=== PATIENT | female | born 1995 | race Caucasian/White ===

== ENCOUNTER → 2019-04-01 | Outpatient (CLI) | payer BC ==
[2019-04-01 14:46] VITALS: BP 111/72; PULSE 97; RESP 16; TEMP 97.9; BMI 25.7
--- NOTE | 2019-04-01 15:42 | P.HPOB ---
History of Present Illness H&P Date: 04/01/19 Chief Complaint: The patient is here for her routine gynecologic exam and OCP renewal. This is a 23-year-old with an LMP of 03/21/2019. The patient is here to establish with this office. She is doing well on oral contraception. She did use the ParaGard IUD briefly, but had very heavy menstrual periods and this was removed in September of this year. After her next menstrual period, she started Nortrel 777 for control. 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 The patient states she did have anemia while using the IUD and has undergone a workup for the anemia. She denies any bleeding disorders and denies any history of blood clots. She is without gynecologic complaints. It has been about 1 year since her last pelvic exam. Review of Systems The patient's weight has been stable over the last year. She denies respiratory, cardiac, or G.I. problems. Past Medical History Past Medical History: No Reported History Additional Past Medical History / Comment(s): Anemia while using the ParaGard IUD. PAST EXTENDED INSURANCE CLERK HISTORY: She has no history of STDs. She has completed the HPV vaccination series. History of Any Multi-Drug Resistant Organisms: MRSA Date of last positivie culture/infection: 2014 MDRO Source:: skin - axilla, mulitple sites, lip, groin Past Surgical History: No Surgical Hx Reported Additional Past Surgical History / Comment(s): wisdom teeth Past Anesthesia/Blood Transfusion Reactions: No Reported Reaction Past Psychological History: Anxiety Smoking Status: Never smoker Past Alcohol Use History: None Reported Past Drug Use History: None Reported Additional History: She has been since 2014. 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 - Past Family History Sister(s) Additional Family Medical History / Comment(s): Ehler danlos syndrome Mother Family Medical History: No Reported History Additional Family Medical History / Comment(s): Maternal aunt had ovarian cancer. Medications and Allergies Home Medications Medication Instructions Recorded Confirmed Type Ibuprofen [Motrin] 600 mg PO Q8HR PRN #30 tab 04/23/18 04/01/19 Rx Norethindrone-Ethinyl Estrad 1 each PO 04/01/19 History [Ortho-Novum 7-7-7-28 Tablet] Allergies Allergy/AdvReac Type Severity Reaction Status Date / Time shellfish derived [Shrimp] Allergy Nausea & Verified 04/01/19 14:48 Vomiting & Diarrhea Exam Vital Signs Temp Pulse Resp BP Pulse Ox 04/01/19 14:42 97.9 F 97 16 111/72 99 Intake and Output 04/01/19 04/01/19 04/01/19 06:59 14:59 22:59 Other: Weight 65.771 kg Height 5 feet 3 inches, weight 145 pounds, BMI 25.7. This is a well-developed well-nourished white female who is alert and oriented times 3 in no acute distress. HEENT: Within normal limits. NECK: Supple without mass or thyromegaly. CHEST AND LUNGS: Clear to auscultation. HEART: Regular rate and rhythm. BREASTS: Are without mass or discharge. AXILLARY EXAM: Negative for adenopathy. BACK: Negative for CVA tenderness. ABDOMEN: Soft, nontender, without palpable masses. PELVIC EXAM: Normal external genitalia. Cervix and vagina appear normal. Cervix appears multiparous. There is no unusual discharge. There is no evidence of prolapse. The uterus is retroverted, nongravid size and nontender. There are no palpable adnexal masses or tenderness. RECTAL EXAM: Deferred. EXTREMITIES: Nontender. IMPRESSION: 1. 23-year-old female with normal gynecologic exam doing well on oral contraception. PLAN: 1. Pap smear was performed. 2. Self breast awareness was discussed with the patient. 3. We had a long discussion regarding oral contraception. We have discussed possible side effects as well as possible risks including increased risk for blood clots. The patient understands these things and would like to continue on oral contraception. The prescription for Nortrel 777 will be sent to [place] [facility]. 4. She was advised to return in one year for her annual well woman exam.
== END | disposition home or self-care (01) ==
LOC: WWCWWP 14:32 → MERGE 14:32
PROVIDERS: ATTEND Obstetrics & Gynecology
DX: Z53.9 Procedure and treatment not carried out, unspecified reason (principal)